=== PATIENT | female | born 1935 | race Caucasian/White ===

== ENCOUNTER 2017-09-05 10:08 | Emergency (ER) | payer OTHER ==
[~2017-09-05] VITALS: Ht 157.5 cm; Wt 58.3 kg
[2017-09-05] MEDS ORDERED: PREVACID 24HR15 MG PO (10:34)
[2017-09-05] MEDS ORDERED: LIPITOR 20 MG T20 M1 PO (10:35)
[2017-09-05] MEDS ORDERED: CLONIDINE0.1 PO (10:35)
[2017-09-05] MEDS ORDERED: BENEFIBER1 EAC1 PO (10:35)
[2017-09-05 11:21] LABS: INFLUENZA A ANTIGEN None Detected (None Detect); INFLUENZA B ANTIGEN None Detected (None Detect)
[2017-09-05 12:45] LABS: ANION GAP 13 mmol/L (7-16); BUN 14 mg/dL (7-18); CALCIUM 8.6 mg/dL (8.5-10.1); CHLORIDE 101 mmol/L (98-107); CO2 23 mmol/L (21-32); CREATININE 1.5 mg/dL (0.6-1.3); GLUCOSE 102 mg/dL (70-99); POTASSIUM 3.9 mmol/L (3.5-5.1); SODIUM 137 mmol/L (136-145)
[2017-09-05 12:52] LABS: ALBUMIN 3.6 g/dL (3.4-5.0); ALKALINE PHOSPHATASE 79 U/L (46-116); LIPASE 204 U/L (73-393); SGOT 45 U/L (15-37); SGPT 25 U/L (30-65); TOTAL BILIRUBIN 0.6 mg/dL (<0.1-1.0); TOTAL PROTEIN 7.2 g/dL (6.4-8.2); TROPONIN-I LEVEL <0.06 ng/mL (<0.06)
[2017-09-05 13:31] LABS: ABSOLUTE LYMPHOCYTES 1.8 thou/uL (0.8-5.3); ABSOLUTE MONOCYTES 0.7 thou/uL (0.0-1.2); ABSOLUTE NEUTROPHILS 4.1 thou/uL (1.6-8.1); BASOPHILS 0.5 %; EOSINOPHILS 0.1 %; HEMATOCRIT 39.8 % (37.0-47.0); HEMOGLOBIN 13.4 gm/dL (12.0-15.0); LYMPHOCYTES 27.4 %; MCH 31.1 pg (26.0-34.0); MCHC 33.7 g/dL (28.0-37.0); MCV 92.5 fL (80.0-100.0); MONOCYTES 9.8 %; MPV 7.9 fl. (7.2-11.1); NUCLEATED RBCS 0 /100WBC; PLATELET COUNT* 237 thou/uL (150-400); POLYS 62.2 %; RDW-CV 12.4 % (10.5-14.5); WBC 6.7 thou/uL (4.0-11.0)
[2017-09-05 14:55] LABS: URINE BILIRUBIN NEGATIVE (Negative); URINE BLOOD NEGATIVE (Negative); URINE CLARITY CLEAR; URINE COLOR YELLOW; URINE GLUCOSE-RANDOM NEGATIVE (Negative); URINE KETONES TRACE (Negative); URINE LEUKOCYTES-REFLEX 1+ (Negative); URINE PROTEIN TRACE (Negative); URINE UROBILINOGEN 0.2 E.U./dl (0.2-1.0)
[2017-09-05 14:56] LABS: URINE NITRITE-REFLEX POSITIVE (Negative)
[2017-09-05] MEDS ORDERED: BACTRIM DS TAB1 EACH PO (15:04)
[2017-09-05] MEDS ORDERED: ZOFRAN4 MG PO (15:04)
[2017-09-05 15:10] VITALS: BP 117/55
[2017-09-05 15:13] LABS: CRYSTALS None Seen /LPF (None Seen); HYALINE CASTS >10 Many /LPF (None Seen); SQUAMOUS >10 Many /LPF (0-3)
[2017-09-05 15:14] LABS: BACTERIA-REFLEX >30 Many /HPF (None Seen); MUCUS None Seen strn/LPF (None Seen)
[2017-09-05 15:15] LABS: URINE RBC None Seen /HPF (0-2)
--- NOTE | 2017-09-07 12:51 | EKG ---
[place] [address] ELECTROCARDIOGRAM REPORT Name: MIGDALIA ROSAS Room: [facility]#: [id number] Admission: 09/05/17 Attend Phys: Discharge: 09/05/17 Date of : 39 Report #: [id number] THIS REPORT FOR: //name// [facility] ED Test Date: 2017-09-05 Test Time: 12:38:04 Pat Name: MIGDALIA ROSAS Department: Room: Gender: F Clinic Administrator: ROGELIO : 1935 Requested By: Jacquelin Zamorano Order Number: [id number] MD: Alex Gonzalez Measurements Intervals [place] Rate: 75 P: 72 AR: 152 QRS: 66 QRSD: 122 T: 53 QT: 452 QTc: 505 Interpretive Statements Sinus rhythm Nonspecific intraventricular conduction delay Borderline T abnormalities, anterior leads Baseline wander in lead(s) I No previous ECG available for comparison Electronically Signed On 09-07-2017 12:51:27 STADIUM ATTENDANT by Alex Gonzalez [email or web address] <ELECTRONICALLY SIGNED> By: Alex Gonzalez MD, [facility] 09/07/17 1251 1238 1238 Alex Gonzalez MD, [facility] /EPI
== END 2017-09-05 15:19 | disposition home or self-care (01) ==
LOC: M.ERS 10:08
PROVIDERS: Nurse Practitioner Family
DX: N39.0 Urinary tract infection, site not specified (principal); R53.1 Weakness; I10 Essential (primary) hypertension; E03.9 Hypothyroidism, unspecified; E78.00 Pure hypercholesterolemia, unspecified; K21.9 Gastro-esophageal reflux disease without esophagitis; G89.29 Other chronic pain; M81.0 Age-related osteoporosis without current pathological fracture; Z98.890 Other specified postprocedural states; Z87.19 Personal history of other diseases of the digestive system; Z90.710 Acquired absence of both cervix and uterus

== ENCOUNTER 2021-09-18 05:18 | Observation (INO) | payer OTHER ==
[~2021-09-18] VITALS: Ht 157.5 cm; Wt 63.5 kg
--- NOTE | ~2021-09-18 | PROC ---
[address] [address] PROCEDURE REPORT Name: MIGDALIA ROSAS BRAIN Room: [address] Danie ReevesRCate#: [id number] Admission: 09/18/21 Attend Phys: Merced Skaggs MD Discharge: 09/20/21 Date of : 39 Report #: [id number] THIS REPORT FOR: cc: Gonzalez Tinajero MD, Meng MD [facility],Medical Records Staff ~ For GI report, please see the Provation report in Perceptive 7 content. By: 1035Medical Records Staff BRENDA /MARLYN
--- NOTE | ~2021-09-18 | CON ---
[address] [address] CONSULTATION Name: MIGDALIA ROSAS Room: [address] IN .R.#: [id number] Admission: 09/18/21 Attend Phys: Merced Skaggs MD Discharge: Date of : 39 Report #: [id number] THIS REPORT FOR: cc: Gonzalez Tinajero MD, Meng MD Namin, Farid M. MD ~ DATE OF CONSULTATION: 09/18/2021 REASON FOR CONSULTATION: Dysphagia. HISTORY OF PRESENT ILLNESS: This is an 86-year-old female who was brought to the hospital since she has had symptoms of dysphagia and unable to eat for the past 2-3 weeks. She reports that she also has some reflux symptoms and gets regurgitation of the food. The patient's daughter is by bedside and provides a lot of the information. The patient appears to have dementia as she keeps repeating the same questions. The patient reports that she went to Emergency Room at [facility] little over a week ago with food bolus, but was treated in the ER without any scopes and was sent home. PAST MEDICAL HISTORY: Significant for history of gastroesophageal reflux disease, dyslipidemia, hypertension, hypothyroidism, history of laminectomy in 1983, cataract surgery, carpal tunnel surgery, diverticulitis, osteoporosis, fibromyalgia and history of chronic back pain. She has had back surgery for spinal stenosis, hysterectomy and bladder mesh placement in the past. ALLERGIES: No known drug allergy. MEDICATIONS: Please refer to MAR. SOCIAL HISTORY: The patient lives at home with her and since COVID, have not really left home. She denies ever smoking, but reports that occasionally may have a small glass of wine. FAMILY HISTORY: Noncontributory. PHYSICAL EXAMINATION: VITAL SIGNS: Reveals blood pressure of 177/91, respirations 11, pulse 87, temperature 97. LUNGS: Clear. CARDIOVASCULAR: Regular. ABDOMEN: Soft, nontender, nondistended. Bowel sounds are positive. NEUROLOGIC: The patient is alert [place] [address] [address] CONSULTATION Name: RALPHMIGDALIA BRAIN Room: [address] IN [facility].#: [id number] Admission: 09/18/21 Attend Phys: Merced Skaggs MD Discharge: Date of : 39 Report #: [id number] LABORATORY DATA: Reveal sodium of 124, potassium 3.5, BUN is 6, creatinine is 1.0, AST is 40, ALT 26, alkaline phosphatase 130, total bilirubin 0.6, albumin 3.6. WBC is 10.4 with hemoglobin of 13.7 and platelets of 431. ASSESSMENT AND PLAN: The patient with dysphagia and history of recent food bolus, but no recent upper endoscopy. We will schedule her for EGD with possible dilation of her esophagus tomorrow. Meanwhile, we will allow her to have full liquid diet. By: 1559 1954Shavon Phillip MD /cristian
[~2021-09-18 05:18] MED LIST: BACTRIM DS TAB1 EACH PO; BENEFIBER1 EAC1 PO; CLONIDINE HCL0.1 MG PO; LIPITOR 20 MG T20 M1 PO; PREVACID 24HR15 MG PO; ZOFRAN4 MG PO
[2021-09-18 05:40] VITALS: BP 187/97
[2021-09-18 06:29] LABS: HEMATOCRIT 39.7 % (37.0-47.0); HEMOGLOBIN 13.7 gm/dL (12.0-15.0); MCH 31.6 pg (26.0-34.0); MCHC 34.6 g/dL (28.0-37.0); MCV 91.4 fL (80.0-100.0); MPV 6.8 fl. (7.2-11.1); RBC 4.34 mil/uL (4.20-5.00); RDW-CV 12.9 % (10.5-14.5); WBC 10.4 thou/uL (4.0-11.0)
[2021-09-18] MEDS ORDERED: CARAFATE 1 GM TA1 GM PO (06:43)
[2021-09-18 06:52] LABS: CALCIUM 9.2 mg/dL (8.5-10.1); CREATININE 1.1 mg/dL (0.6-1.3)
[2021-09-18 06:56] LABS: ALBUMIN 3.6 g/dL (3.4-5.0); MAGNESIUM 1.4 mg/dL (1.8-2.4); TOTAL BILIRUBIN 0.6 mg/dL (<0.1-1.0); TOTAL PROTEIN 8.4 g/dL (6.4-8.2)
[2021-09-18 07:04] LABS: POTASSIUM 2.5 mmol/L (3.5-5.1)
--- NOTE | 2021-09-18 09:33 | EKG ---
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: [place] : 1935 Requested By: Justin David Order Number: [id number] MD: Hung Bernard Measurements Intervals [place] Rate: 109 P: 54 DE: 181 QRS: 68 QRSD: 91 T: 1 QT: 347 QTc: 468 Interpretive Statements Sinus tachycardia Probable left atrial enlargement Borderline repolarization abnormality Compared to ECG 09/05/2017 12:38:04 Sinus rate has increased Intraventricular conduction delay no longer present Anterolateral ST-T abnormalities are slightly more pronounced Electronically Signed On 09-18-2021 9:32:49 DISPLAY MECHANIC by Hung Bernard [email or web address] <ELECTRONICALLY SIGNED> By: Hung Bernard MD, [facility] 09/18/21 0932 Hung Bernard MD, [facility] /EPI
[2021-09-18 10:48] LABS: CALCIUM 9.1 mg/dL (8.5-10.1)
[2021-09-18 10:51] LABS: MAGNESIUM 1.4 mg/dL (1.8-2.4); PHOSPHORUS* 3.3 mg/dL (2.5-4.9); POTASSIUM 3.5 mmol/L (3.5-5.1)
[2021-09-18 11:46] VITALS: BP 177/91
[2021-09-18 15:18] VITALS: BP 177/91
--- NOTE | 2021-09-18 17:07 | NUR ---
CM ATTEMPTED TO CONDUCT ASSESSMENT, BUT WAS UNABLE TO SPEAK WITH EITHER AUTHORIZED CONTACT. CM TO MAKE ADDITIONAL ATTEMPTS.
[2021-09-18 18:27] VITALS: BP 162/61
[2021-09-18 22:19] VITALS: BP 128/62
[2021-09-19 03:39] VITALS: BP 124/64
[2021-09-19 04:00] VITALS: BP 141/68
--- NOTE | 2021-09-19 05:13 | NUR ---
PT ARRIVED TO FLOOR AT 0345 FROM ER ACCOMPANIED BY DAUGHTER. ASSESSMENT COMPLETED BY Gwen SÁNCHEZ RN. I AGREE WITH HER ASSESSMENT. PT NPO SINCE MIDNIGHT FOR SWALLOW STUDY TODAY. HOURLLY ROUNDING IN PROGRESS, WILL CONTINUE TO MONITOR.
[2021-09-19 08:00] VITALS: BP 120/57
[2021-09-19 08:24] LABS: CHOLESTEROL 191 mg/dL (<200); HDL CHOLESTEROL 74 mg/dL (>40); LDL CHOLESTEROL 97 mg/dL (<100); SERUM ASSESSMENT CLEAR; TC:HDL 2.6 Ratio (Not establshd); TRIGLYCERIDE 104 mg/dL (<150); VLDL 21 mg/dL (<40)
[2021-09-19 08:40] LABS: CALCIUM 9.3 mg/dL (8.5-10.1); CREATININE 1.1 mg/dL (0.6-1.3)
[2021-09-19 08:45] LABS: POTASSIUM 2.7 mmol/L (3.5-5.1)
--- NOTE | 2021-09-19 11:26 | EKG ---
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: PAOLO : 1935 Requested By: Carrillo Keller Order Number: [id number] MD: Hung Bernard Measurements Intervals [place] Rate: 88 P: 52 HI: 142 QRS: 58 QRSD: 85 T: -83 QT: 347 QTc: 420 Interpretive Statements Sinus rhythm Probable left atrial enlargement Low voltage, precordial leads Nonspecific T abnormalities, lateral leads Compared to ECG 09/18/2021 05:31:44 Low QRS voltage now present T-wave abnormality now present Sinus tachycardia no longer present Electronically Signed On 09-19-2021 11:26:04 CALENDER WIND UP TENDER by Hung Bernard [email or web address] <ELECTRONICALLY SIGNED> By: Hung Bernard MD, [facility] 09/19/21 1126 0959 Hung Bernard MD, [facility] /EPI
[2021-09-19 12:00] VITALS: BP 118/56
[2021-09-19 12:03] LABS: URINE BILIRUBIN NEGATIVE (Negative); URINE BLOOD TRACE (Negative); URINE CLARITY CLEAR; URINE COLOR YELLOW; URINE GLUCOSE-RANDOM NEGATIVE (Negative); URINE KETONES TRACE (Negative); URINE LEUKOCYTES-REFLEX NEGATIVE (Negative); URINE NITRITE-REFLEX NEGATIVE (Negative); URINE PROTEIN NEGATIVE (Negative); URINE UROBILINOGEN 0.2 E.U./dl (0.2-1.0)
--- NOTE | 2021-09-19 12:19 | 2DMMODE ---
[place] [address] 2 D/M-MODE ECHOCARDIOGRAM Name: MIGDALIA ROSAS Room: [address] Essence#: [id number] Admission: 09/18/21 Attend Phys: Merced Skaggs, Discharge: Date of : 39 Date of Service: 09/19/21 1219 Report #: [id number] THIS REPORT FOR: cc: Gonzalez Tinajero MD, Meng MD Holkins, John M. MD [facility] ~ APPROVED REPORT Study performed: 09/19/2021 11:16:15 EXAM: Comprehensive 2D, Doppler, and color-flow Echocardiogram Patient Location: In-Patient Room #: [facility] Status: routine BSA: 1.64 HR: 91 bpm BP: 141/68 mmHg Rhythm: NSR Other Information Study Quality: Good Indications Pre-Op Chest Pain 2D Dimensions IVSd: 14.18 (7-11mm) LVOT Diam: 19.05 (18-24mm) LVDd: 26.25 mm PWd: 12.10 (7-11mm) LVDs: 13.73 (25-40mm) Aortic Root: 25.78 mm Volumes Left Atrial Volume (Systole) LA ESV Index: 15.90 mL/m2 Aortic Valve AoV Peak Jorge.: 1.44 m/s AO Peak Gr.: 8.32 mmHg LVOT Max P.60 mmHg AO Mean Gr.: 4.86 mmHg LVOT Mean P.67 mmHg LVOT Max V: 1.47 m/s AO V2 VTI: 23.97 cm LVOT Mean V: 1.01 m/s OMAIRA (VTI): 2.69 cm2 LVOT V1 VTI: 22.61 [place] [address] 2 D/M-MODE ECHOCARDIOGRAM Name: ANGUSAUSTINLEELAMIGDALIA Room: [address] M.R.#: [id number] Admission: 09/18/21 Attend Phys: Merced Skaggs, Discharge: Date of : 39 Date of Service: 09/19/21 1219 Report #: [id number] Mitral Valve MV Mean Gr.: 5.60 mmHg E/A Ratio: 0.56 MV Decel. Time: 301.79 ms MV E Max Jorge.: 1.05 m/s MV PHT: 87.52 ms MVA (PHT): 2.51 cm2 Pulmonary Valve PV Peak Jorge.: 0.79 m/s PV Peak Gr.: 2.52 mmHg Left Ventricle The left ventricle is normal size. There is normal LV segmental wall motion. Moderate concentric left ventricular hypertrophy. Left ventricular systolic function is normal. The left ventricular ejection fraction is within the normal range. LVEF is >70%. Grade I - abnormal relaxation pattern. Right Ventricle The right ventricle is normal size. The right ventricular systolic function is normal. Atria The left atrium size is normal. The right atrium size is normal. Aortic Valve Mild aortic valve sclerosis. No aortic regurgitation is present. There is no aortic valvular stenosis. Mitral Valve There is mitral annular calcification. There is no mitral valve regurgitation noted. No evidence of mitral valve stenosis. Tricuspid Valve The tricuspid valve is normal in structure. Trace tricuspid regurgitation. Unable to assess PA pressure. Pulmonic Valve The pulmonary valve is normal in structure. There is no pulmonic valvular regurgitation. Great Vessels The aortic root is normal in size. IVC is normal in size and collapses >50% [place] [address] 2 D/M-MODE ECHOCARDIOGRAM Name: MIGDALIA ROSAS Room: [address] Essence#: [id number] Admission: 09/18/21 Attend Phys: Merced Skaggs, Discharge: Date of : 39 Date of Service: 09/19/21 1219 Report #: [id number] Pericardium There is no pericardial effusion. <Conclusion> The left ventricle is normal size. Moderate concentric left ventricular hypertrophy. Left ventricular systolic function is normal. The left ventricular ejection fraction is within the normal range. LVEF is >70%. Grade I - abnormal relaxation pattern. The right ventricle is normal size. The left atrium size is normal. Mild aortic valve sclerosis. No aortic regurgitation is present. There is no aortic valvular stenosis. There is mitral annular calcification. There is no mitral valve regurgitation noted. No evidence of mitral valve stenosis. The tricuspid valve is normal in structure. IVC is normal in size and collapses >50% with inspiration. There is no pericardial effusion. There is normal LV segmental wall motion. <ELECTRONICALLY SIGNED> By: Hung Bernard MD, FACC 09/19/219 18 18 Hung Bernard MD, FACC /INF
[2021-09-19 16:00] VITALS: BP 114/60
--- NOTE | 2021-09-19 16:10 | NUR ---
Attempted to see pt x2 to complete assessment - however pt out of room for testing. CM to continue to follow for discharge planning.
--- NOTE | 2021-09-19 17:01 | NUR ---
CM FOLLOWUP PT MAY BE CLEAR FOR DC OVER THE . PT IS DECLINING HH AT THIS TIME BUT WAS OPEN TO INFORMATION ON HH. PT PROVIDED HH RESOURCES.
[2021-09-19 21:09] VITALS: BP 142/59
[2021-09-20 00:16] VITALS: BP 129/65
[2021-09-20 06:10] VITALS: BP 131/77
--- NOTE | 2021-09-20 07:48 | NUR ---
PT IS ABLE TO COMMUNICATE HER NEEDS TO STAFF WITHOUT DIFFICULTY. CURRENT PAIN MEDICATION REGIMEN HAS BEEN ADEQUATE FOR CONTROLLING HER PAIN UP[ TO THIS TIME. GI FOLLOWING.
[2021-09-20 08:00] VITALS: BP 127/59; BP 131/77
[2021-09-20 08:25] LABS: POTASSIUM 3.5 mmol/L (3.5-5.1)
[2021-09-20] MEDS ORDERED: CARAFATE 1 GM TA1 GM PO (09:40)
[2021-09-20 11:43] VITALS: BP 133/62
[2021-09-20] MEDS ORDERED: CARAFATE 1 GM TA1 G1 PO (12:40)
--- NOTE | 2021-09-20 13:34 | NUR ---
ASSUMED PT CARE AT 0730. ASSESSMENT COMPLETED CHARTED. ABLE TO MAKE NEEDS KNOWN. UP WITH 1 ASSIST. DISCHARGE APPROVED AND WENT OVER WITH PT AND HER DAUGHTER. C/O NECK PAIN AND GAVE PRN PAIN MEDICATION. PT DRESSED, IV AND HEART MONITOR REMOVED. PT TAKEN AT 1337 TO DAUGHTERS CAR WITH ALL BELONGINGS.
== END 2021-09-20 13:37 | disposition home or self-care (01) ==
LOC: M.ERS 05:18 → M.TBA-ER 07:19 → M.2W 07:19
PROVIDERS: Internal Medicine; Personal Emergency Response Attendant; ADMIT Internal Medicine; ATTEND Internal Medicine
DX: R13.10 Dysphagia, unspecified (principal); E83.42 Hypomagnesemia; E46 Unspecified protein-calorie malnutrition; Z20.822 Contact with and (suspected) exposure to COVID-19; E87.8 Other disorders of electrolyte and fluid balance, not elsewhere classified; K22.2 Esophageal obstruction; E87.1 Hypo-osmolality and hyponatremia; E87.6 Hypokalemia; M81.0 Age-related osteoporosis without current pathological fracture; M79.7 Fibromyalgia; E03.9 Hypothyroidism, unspecified; I10 Essential (primary) hypertension; E78.00 Pure hypercholesterolemia, unspecified; Z90.710 Acquired absence of both cervix and uterus; Z79.899 Other long term (current) drug therapy